=== PATIENT | female | born 1960 | race Caucasian/White ===

== ENCOUNTER 2018-09-13 18:53 | Emergency (ER) | payer MEDICAID ==
[~2018-09-13] VITALS: Ht 162.6 cm; Wt 53.0 kg
[~2018-09-13 18:53] MED LIST: ALBU18HF2 IH; ARIP5TAB4 PO; CITA40TA22 PO; FLUT16SP2 BOTHNARES; GABA-532 PO; HYDR-4353 PO; LORA-512 PO; MELA10TA2 PO
[2018-09-13 19:00] VITALS: BP 131/65
[2018-09-13] MEDS ORDERED: ibuprofen 200mg tablet PO ONE (20:25)
[2018-09-13] MEDS ORDERED: ibuprofen tablet 400 MG TABLET PO ONE (20:25)
== END 2018-09-13 20:44 | disposition home or self-care (01) ==
LOC: ER 18:54
DX: M79.645 Pain in left finger(s) (principal); J45.909 Unspecified asthma, uncomplicated; G89.29 Other chronic pain; Z98.890 Other specified postprocedural states; Z90.89 Acquired absence of other organs; Z88.0 Allergy status to penicillin; Z88.1 Allergy status to other antibiotic agents; Z88.8 Allergy status to other drugs, medicaments and biological substances; Z79.899 Other long term (current) drug therapy; W22.8XXA Striking against or struck by other objects, initial encounter; Y93.89 Activity, other specified; Y92.89 Other specified places as the place of occurrence of the external cause; Y99.8 Other external cause status
CPT/HCPCS: 73140; 99283

== ENCOUNTER 2019-02-16 20:18 | Emergency (ER) | payer MEDICAID ==
[~2019-02-16] VITALS: Ht 162.6 cm; Wt 64.0 kg
[2019-02-16] MEDS ORDERED: ibuprofen tablet 400 MG TABLET PO ONE (21:30)
[2019-02-16] MEDS ORDERED: ACET-3067 PO (21:32)
[2019-02-16 21:34] VITALS: BP 129/86
== END 2019-02-16 21:39 | disposition home or self-care (01) ==
LOC: ER 20:18
DX: S83.8X1A Sprain of other specified parts of right knee, initial encounter (principal); I50.9 Heart failure, unspecified; J45.909 Unspecified asthma, uncomplicated; G89.29 Other chronic pain; Z98.890 Other specified postprocedural states; Z98.84 Bariatric surgery status; Z88.0 Allergy status to penicillin; Z88.1 Allergy status to other antibiotic agents; Z88.8 Allergy status to other drugs, medicaments and biological substances; Z79.899 Other long term (current) drug therapy; W18.39XA Other fall on same level, initial encounter; Y93.89 Activity, other specified; Y92.89 Other specified places as the place of occurrence of the external cause; Y99.8 Other external cause status
CPT/HCPCS: 73564; 99284

== ENCOUNTER 2021-04-15 08:27 | Day surgery (SDC) | payer MEDICARE, MEDICAID ==
[2021-04-08 13:30] LABS: BASOPHILS # (AUTO) 0.1 X10'3 (0-0.2); BASOPHILS % (AUTO) 0.6 % (0-1); EOSINOPHILS # (AUTO) 0.2 X10'3 (0-0.9); EOSINOPHILS % (AUTO) 2.5 % (0-6); LYMPHOCYTES # (AUTO) 2.5 X10'3 (1.1-4.8); LYMPHOCYTES % (AUTO) 26.9 % (21-51); MEAN CORPUSCULAR HGB CONC 32.9 g/dL (33.0-36.5); MEAN CORPUSCULAR VOLUME 76.1 FL (78-98); MONOCYTES # (AUTO) 0.6 X10'3 (0-0.9); MONOCYTES % (AUTO) 6.1 % (2-12); NEUTROPHILS # (AUTO) 5.8 X10'3 (1.8-7.7); NEUTROPHILS % (AUTO) 63.9 % (42-75); PRE OP HEMATOCRIT 34.3 % (35.0-45.0); PRE OP HEMOGLOBIN 11.3 g/dL (12.0-16.0); PRE OP PLATELET COUNT 234 X10'3 (140-440); RED BLOOD COUNT 4.51 X10'6 (4.20-5.60)
[2021-04-08 13:34] LABS: ALBUMIN 3.3 G/DL (3.4-5.0); ALKALINE PHOSPHATASE 80 IU/L (46-116); BLOOD UREA NITROGEN 15 MG/DL (7-18); BUN/CREATININE RATIO 18.5 (6.6-38.0); CALCIUM 7.8 MG/DL (8.5-10.1); CHLORIDE 104 MMOL/L (99-107); CREATININE 0.81 MG/DL (0.40-0.90); PRE OP ALT 22 U/L (30-65); PRE OP ANION GAP 7 (8-16); PRE OP AST 43 U/L (10-37); PRE OP BILIRUB, TOTAL 0.4 MG/DL (0.0-1.0); PRE OP GLUCOSE 102 MG/DL (70-104); PRE OP POTASSIUM 3.8 MMOL/L (3.4-5.1); PRE OP SODIUM 141 MMOL/L (135-145); TOTAL CARBON DIOXIDE 30.1 MMOL/L (24-32); TOTAL PROTEIN 6.6 G/DL (6.4-8.2); eGFR 72 ML/MIN
[2021-04-08 13:49] LABS: CLARITY,URINE CLEAR (Clear); COLOR,URINE YELLOW (Yellow); GLUCOSE, URINE NEGATIVE (Neg); KETONES,URINE NEGATIVE (Neg); LEUKOCYTE ESTERASE ,URINE NEGATIVE (Neg); NITRITES, URINE NEGATIVE (Neg); OCCULT BLOOD,URINE TRACE-INTACT (Neg); PH,URINE 5.5 (4.8-8.0); PROTEIN,URINE NEGATIVE (Neg); UROBILINOGEN,URINE 0.2 E.U/dL (0.2-1.0)
[2021-04-08 13:51] LABS: UA COLLECTION TYPE CLN CATCH MIDSTREAM
[2021-04-08 13:57] LABS: BACTERIA,URINE FEW /HPF (Neg); MUCUS STRANDS NONE SEEN /LPF (Neg); RBC,URINE 0-2 /HPF (0-2); SQUAMOUS EPITHELIAL CELL,UR FEW /LPF (FEW); WBC,URINE 0-4 /HPF (0-4)
[2021-04-08 14:42] LABS: ANISOCYTOSIS 2+; HYPOCHROMASIA 1+; MICROCYTOSIS 1+; PLATELET ESTIMATE NORMAL; POLYCHROMASIA 1+
[2021-04-15] VITALS (9 sets, daily range): BP systolic 104–130; BP diastolic 53–81
[~2021-04-15] VITALS: Ht 162.6 cm; Wt 71.2 kg
[~2021-04-15 08:27] MED LIST changes: -ALBU18HF2 IH; -ARIP5TAB4 PO; +BUPIVAcaine 0.5% inj/PF 30 ML ONE; +BUPIVAcaine/PF 2.5mg/ml (0.25%) 10ml vial ONE; +BUPR1FIL3 SL; +CITA20TA28 PO; -CITA40TA22 PO; +DICL20GE TOP; -FLUT16SP2 BOTHNARES; -GABA-532 PO; +HYDR-3686 PO; -HYDR-4353 PO; +HYDR25TA4 PO; +LEVO25TA7 PO; -LORA-512 PO; +MAGN100T6 PO; -MELA10TA2 PO; +MULT-467 PO; +OMEP-50 PO; +bacitracin 15gm ointment TP ONE; +cefazolin/dext.iso 2gm/100ml IV ONE; +famotidine 20mg tablet PO ONE; +methylfolate PO; +ringers solution, lacted 1,000 ML IV SCH
[2021-04-15] MEDS ORDERED: ACET-1008 PO (10:08)
[2021-04-15] MEDS ORDERED: GABA-530 PO (10:08)
[2021-04-15] MEDS ORDERED: BUPIVAcaine/PF 2.5mg/ml (0.25%) 10ml vial ONE (10:42)
[2021-04-15] MEDS ORDERED: bacitracin 15gm ointment TP ONE (10:43)
[2021-04-15] MEDS ORDERED: ringers solution, lacted 1,000 ML IV SCH (10:50)
[2021-04-15] MEDS ORDERED: hydrALAZINE 20mg/ml inj. IV PRN (10:50)
[2021-04-15] MEDS ORDERED: ondansetron/PF 4mg/2ml inj IV PRN (10:50)
[2021-04-15] MEDS ORDERED: fentaNYL/PF 50MCG/1 ML 2ML syringe IV PRN ×2 (10:50)
[2021-04-15] MEDS ORDERED: morphine 4 MG/ML inj SYRINge IV PRN (10:50)
[2021-04-15] MEDS ORDERED: morphine 2 MG/ML inj. syringe IV PRN (10:50)
[2021-04-15] MEDS ORDERED: labetalol 20mg/4ml (5mg/ml) syringe IV PRN (10:50)
[2021-04-15] MEDS ORDERED: fentaNYL/PF 50MCG/1 ML 2ML syringe ONE ×3 (11:00→15:21)
[2021-04-15] MEDS ORDERED: propofol inj 20 ML IV ONE ×2 (11:00→13:47)
[2021-04-15] MEDS ORDERED: LIDOcaine 2% (20mg/ml) 5ml vial ONE (11:01)
[2021-04-15] MEDS ORDERED: ondansetron/PF 4mg/2ml inj ONE ×2 (11:02→13:50)
[2021-04-15] MEDS ORDERED: dexamethasone sod phosphate 4mg/ml inj. ONE (11:02)
[2021-04-15] MEDS ORDERED: sevoflurane 250ml liquid IH ONE (11:05)
--- NOTE | 2021-04-15 12:35 | NUR ---
Received from OR via , accompanied by Anesthesiologist DR VELÁSQUEZ and report given by Anesthesiolgist. AWAKENS TO VOICE. VITALS STABLE. SPLINT DI. PHILLIP PAIN. BRACE TO LT FOOT.
[2021-04-15] MEDS ORDERED: midazolam 1 mg/ML 2ml injection ONE (13:47)
--- NOTE | 2021-04-15 13:55 | NUR ---
AWAKE AND ORIENTED. VITALS STABLE. DRESSING DI. PHILLIP PAIN. HOME WITH A FRIEND AT THIS TIME.
[2021-04-15] MEDS ORDERED: hydrALAZINE 20mg/ml inj. IV ONE (14:29)
== END 2021-04-15 13:55 | disposition home or self-care (01) ==
LOC: PAS 08:27
PROVIDERS: ATTEND Podiatrist Foot & Ankle Surgery
DX: M20.12 Hallux valgus (acquired), left foot (principal); M20.42 Other hammer toe(s) (acquired), left foot; L03.116 Cellulitis of left lower limb; T84.84XA Pain due to internal orthopedic prosthetic devices, implants and grafts, initial encounter; F32.9 Major depressive disorder, single episode, unspecified; E03.9 Hypothyroidism, unspecified; M19.90 Unspecified osteoarthritis, unspecified site; K21.9 Gastro-esophageal reflux disease without esophagitis; G89.18 Other acute postprocedural pain; Z20.822 Contact with and (suspected) exposure to COVID-19; Z98.84 Bariatric surgery status; Z98.890 Other specified postprocedural states; Z88.8 Allergy status to other drugs, medicaments and biological substances; Z88.0 Allergy status to penicillin; Z79.899 Other long term (current) drug therapy; Y83.8 Other surgical procedures as the cause of abnormal reaction of the patient, or of later complication, without mention of misadventure at the time of the procedure; Y92.89 Other specified places as the place of occurrence of the external cause
CPT/HCPCS: 20680; 28285; 28315; 28750; 36415; 64447; 64450; 73620; 76000; 76942; 80053; 81001; 82948; 85025; 87635; A6223; C1713; C9803; J1100; J2001; J2250; J2405; J2704; J3010; J3490; Z7506; Z7508; Z7512; 85008; A4215; A4618; A6253; A6449; A7000; J0360; J7120

== ENCOUNTER 2024-04-07 07:58 | Outpatient (CLI) | payer MEDICARE, MEDICAID ==
[~2024-04-07 07:58] MED LIST changes: +ACET-1008 PO; -BUPIVAcaine 0.5% inj/PF 30 ML ONE; -BUPIVAcaine/PF 2.5mg/ml (0.25%) 10ml vial ONE; +GABA-530 PO; -OMEP-50 PO; +OMEP20CA16 PO; -bacitracin 15gm ointment TP ONE; -cefazolin/dext.iso 2gm/100ml IV ONE; -famotidine 20mg tablet PO ONE; -ringers solution, lacted 1,000 ML IV SCH
== END 2024-04-07 23:59 | disposition home or self-care (01) ==
LOC: RAD 07:58
PROVIDERS: ATTEND Nurse Practitioner
DX: R29.6 Repeated falls (principal)
CPT/HCPCS: 95819